=== PATIENT | female | born 1950 | race Caucasian/White ===

== ENCOUNTER 2017-08-19 14:40 | Emergency (ER) | payer MEDICARE ==
[~2017-08-19] VITALS: Ht 165.1 cm; Wt 66.0 kg
[2017-08-19 14:57] VITALS: BP 115/70; PULSE 110; RESP 16; TEMP 99.2
[2017-08-19] MEDS ORDERED: SODIUM CHLOR 0.9% 1000 ML INJ 1,000 ML IV ONE (15:01)
[2017-08-19] MEDS ORDERED: XANA1TAB2 PO (15:05)
[2017-08-19] MEDS ORDERED: DIPH25CA PO (15:06)
--- NOTE | 2017-08-19 15:07 | PD ---
HPI Chief Complaint: GI Complaint Time Seen by Provider: 14:47 Travel History International Travel<30 days: No Contact w/Intl Traveler<30days: No Traveled to known affect area: No History of Present Illness HPI The patient is a 67-year-old female who presents to the emergency department via EMS for diarrhea. The patient has a history of bad anxiety for which she takes Xanax. The patient was riding her stationary bike earlier today when she suddenly felt some abdominal "gurgling" and subsequently had diarrhea. The patient has 3 episodes of diarrhea which she describes as loose, watery, brown, without any visible blood. The patient thought possibly she had a "stomach flu". She denies any fever, does note some intermittent headaches. She denies any myalgias arthralgias, arthralgias, nausea, or vomiting. Symptoms are moderate. There are no current alleviating or exacerbating factors. She denies any other family members at home having similar symptoms. She did eat at a vegan restaurant yesterday. PFSH Past Medical History Narrative Medical Anxiety, estrogen replacement Past Surgical History Hysterectomy: Yes Social History Alcohol Use: No Tobacco Use: No Substance Use: No Allergies-Medications (Allergen,Severity, Reaction): Coded Allergies: buspirone (Verified Allergy, Severe, Numbness, 08/19/17) Reported Meds & Prescriptions Reported Meds & Active Scripts Active Reported Diphenhydramine (Diphenhydramine HCl) 25 Mg Cap 25 Mg PO HS PRN Xanax (Alprazolam) 1 Mg Tab 1 Mg PO Q8H PRN Review of Systems Except as stated in HPI: all other systems reviewed are Neg General / Constitutional: No: Fever, Chills HENT: Positive: Headaches, No: Lightheadedness Cardiovascular: No: Chest Pain or Discomfort Respiratory: No: Cough Gastrointestinal: Positive: Diarrhea, Abdominal Pain (Intermittent cramping), No: Nausea, Vomiting Genitourinary: No: Dysuria Musculoskeletal: No: Myalgias, Arthralgias Physical Exam Narrative GENERAL: Awake, alert, pleasant 67-year-old female who appears her stated age and is in no acute respiratory distress. SKIN: Focused skin assessment warm/dry. HEAD: Atraumatic. Normocephalic. EYES: No injection or drainage. ENT: No nasal bleeding or discharge. Slightly dry mucous membranes. NECK: Trachea midline. No JVD. CARDIOVASCULAR: R regular, tachycardic with a heart rate of 110. RESPIRATORY: No accessory muscle use. Clear to auscultation. Breath sounds equal bilaterally. GASTROINTESTINAL: Abdomen soft, non-tender, nondistended. No rebound tenderness , guarding, rigidity. Negative Billingsley's. Negative McBurney's. MUSCULOSKELETAL: No obvious deformities. No clubbing. No cyanosis. No edema. NEUROLOGICAL: Awake and alert. No obvious cranial nerve deficits. Motor grossly within normal limits. Normal speech. PSYCHIATRIC: Appropriate mood and affect; insight and judgment normal. Data Data Last Documented VS Vital Signs Date Time Temp Pulse Resp B/P (MAP) Pulse Ox O2 Delivery O2 Flow Rate FiO2 08/19/17 15:39 90 18 105/69 (81) 98 Room Air 08/19/17 14:57 99.2 Orders Orders Complete Blood Count With Diff (08/19/17 15:01) Comprehensive Metabolic Panel (08/19/17 15:01) Lipase (08/19/17 15:01) Iv Access Insert/Monitor (08/19/17 15:01) Ecg Monitoring (08/19/17 15:01) Oximetry (08/19/17 15:01) Sodium Chlor 0.9% 1000 Ml Inj (Ns 1000 M (08/19/17 15:01) Sodium Chloride 0.9% Flush (Ns Flush) (08/19/17 15:15) Alprazolam (Xanax) (08/19/17 15:45) Influenzae A/B Antigen (08/19/17 15:51) Labs Laboratory Tests Test 08/19/17 15:14 White Blood Count 11.2 TH/MM3 Red Blood Count 4.66 MIL/MM3 Hemoglobin 15.6 GM/DL Hematocrit 43.0 % Mean Corpuscular Volume 92.3 FL Mean Corpuscular Hemoglobin 33.4 PG Mean Corpuscular Hemoglobin Concent 36.0 % Red Cell Distribution Width 12.8 % Platelet Count 208 TH/MM3 Mean Platelet Volume 8.0 FL Neutrophils (%) (Auto) 87.2 % Lymphocytes (%) (Auto) 3.3 % Monocytes (%) (Auto) 5.5 % Eosinophils (%) (Auto) 0.2 % Basophils (%) (Auto) 3.8 % Neutrophils # (Auto) 9.8 TH/MM3 Lymphocytes # (Auto) 0.4 TH/MM3 Monocytes # (Auto) 0.6 TH/MM3 Eosinophils # (Auto) 0.0 TH/MM3 Basophils # (Auto) 0.4 TH/MM3 CBC Comment DIFF FINAL Differential Comment Blood Urea Nitrogen 10 MG/DL Creatinine 1.00 MG/DL Random Glucose 117 MG/DL Total Protein 7.6 GM/DL Albumin 3.5 GM/DL Calcium Level 8.6 MG/DL Alkaline Phosphatase 102 U/L Aspartate Amino Transf (AST/SGOT) 25 U/L Alanine Aminotransferase (ALT/SGPT) 34 U/L Total Bilirubin 0.4 MG/DL Sodium Level 138 MEQ/L Potassium Level 3.7 MEQ/L Chloride Level 104 MEQ/L Carbon Dioxide Level 26.9 MEQ/L Anion Gap 7 MEQ/L Estimat Glomerular Filtration Rate 56 ML/MIN Lipase 129 U/L MDM Medical Decision Making Medical Screen Exam Complete: Yes Emergency Medical Condition: Yes Medical Record Reviewed: Yes Interpretation(s) Laboratory Tests Test 08/19/17 15:14 White Blood Count 11.2 TH/MM3 Red Blood Count 4.66 MIL/MM3 Hemoglobin 15.6 GM/DL Hematocrit 43.0 % Mean Corpuscular Volume 92.3 FL Mean Corpuscular Hemoglobin 33.4 PG Mean Corpuscular Hemoglobin Concent 36.0 % Red Cell Distribution Width 12.8 % Platelet Count 208 TH/MM3 Mean Platelet Volume 8.0 FL Neutrophils (%) (Auto) 87.2 % Lymphocytes (%) (Auto) 3.3 % Monocytes (%) (Auto) 5.5 % Eosinophils (%) (Auto) 0.2 % Basophils (%) (Auto) 3.8 % Neutrophils # (Auto) 9.8 TH/MM3 Lymphocytes # (Auto) 0.4 TH/MM3 Monocytes # (Auto) 0.6 TH/MM3 Eosinophils # (Auto) 0.0 TH/MM3 Basophils # (Auto) 0.4 TH/MM3 CBC Comment DIFF FINAL Differential Comment Blood Urea Nitrogen 10 MG/DL Creatinine 1.00 MG/DL Random Glucose 117 MG/DL Total Protein 7.6 GM/DL Albumin 3.5 GM/DL Calcium Level 8.6 MG/DL Alkaline Phosphatase 102 U/L Aspartate Amino Transf (AST/SGOT) 25 U/L Alanine Aminotransferase (ALT/SGPT) 34 U/L Total Bilirubin 0.4 MG/DL Sodium Level 138 MEQ/L Potassium Level 3.7 MEQ/L Chloride Level 104 MEQ/L Carbon Dioxide Level 26.9 MEQ/L Anion Gap 7 MEQ/L Estimat Glomerular Filtration Rate 56 ML/MIN Lipase 129 U/L Date/Time Source Procedure Growth Status 08/19/17 15:50 Nasal Aspirate Influenza Types A,B Antigen ([facility]) - Final Positive For Flu A Antigen Complete Differential Diagnosis Differential diagnosis includes gastroenteritis, enteritis, colitis, viral syndrome, food poisoning, electrolyte abnormality, IBS, anxiety, somatization, influenza. Narrative Course IV was established, labs are drawn and sent, and the patient was placed on cardiac telemetry monitoring and continuous pulse oximetry monitoring. The patient was administered 1 L of IV fluids. Laboratory evaluation is unremarkable. Influenza screen is positive for influenza A. The patient had no further diarrhea. She will be prescribed Tamiflu. Is advised to drink plenty of fluids, [id number] medications as needed for diarrhea including Imodium. She is advised to follow-up with her primary physician. Return if symptoms worsen or progress. Diagnosis Primary Impression: Influenza A Patient Instructions: General Instructions Additional Instructions: Plenty of fluids to stay hydrated. Tamiflu as directed. [id number] medications for diarrhea including Imodium as needed. Follow-up with a primary physician. Return if symptoms worsen or progress. Med/Other Pt SpecificInfo: Prescription(s) given Scripts Oseltamivir (Tamiflu) 75 Mg Cap 75 MG PO BID for Mgmt Viral Infection for 5 Days, #10 CAP 0 Refills Prov: Carlito Murray MD 08/19/17 Disposition: 01 DISCHARGE HOME Condition: Stable Carlito Murray MD Aug 19, 2017 15:06
[2017-08-19 15:15] VITALS: O2SAT 98
[2017-08-19] MEDS ORDERED: SODIUM CHLORIDE 0.9% FLUSH 10 ML FLUSH IVF PRN (15:15)
[2017-08-19 15:18] LABS: AUTOMATED NEUTROPHIL # 9.8 TH/MM3 (1.8-7.7); BASOPHIL # 0.4 TH/MM3 (0-0.2); BASOPHIL % 3.8 % (0.0-2.0); EOSINOPHIL % 0.2 % (0.0-4.0); HEMOGLOBIN 15.6 GM/DL (11.6-15.3); LYMPH % 3.3 % (9.0-44.0); LYMPHOCYTE # 0.4 TH/MM3 (1.0-4.8); MEAN CELL VOLUME 92.3 FL (80.0-100.0); MEAN CORPUSCULAR HEMOGLOBIN 33.4 PG (27.0-34.0); MONO % 5.5 % (0.0-8.0); MONOCYTE # 0.6 TH/MM3 (0-0.9); NEUT % 87.2 % (16.0-70.0); PLATELET COUNT 208 TH/MM3 (150-450); RED BLOOD COUNT 4.66 MIL/MM3 (4.00-5.30); RED CELL DISTRIBUTION WIDTH 12.8 % (11.6-17.2); WHITE BLOOD COUNT 11.2 TH/MM3 (4.0-11.0)
[2017-08-19 15:30] LABS: CHLORIDE 104 MEQ/L (98-107); SODIUM (NA) 138 MEQ/L (136-145)
[2017-08-19 15:34] LABS: CALCIUM 8.6 MG/DL (8.5-10.1)
[2017-08-19 15:35] LABS: ALBUMIN 3.5 GM/DL (3.4-5.0); BICARBONATE 26.9 MEQ/L (21.0-32.0); BLOOD UREA NITROGEN 10 MG/DL (7-18); GLUCOSE,RANDOM 117 MG/DL (74-106)
[2017-08-19 15:37] LABS: ALT (GPT) 34 U/L (10-53); AST (GOT) 25 U/L (15-37)
[2017-08-19 15:38] LABS: GLOMERULAR FILTRATION RATE 56 ML/MIN (>89)
[2017-08-19 15:39] VITALS: BP 105/69; PULSE 90; RESP 18; O2SAT 98
[2017-08-19 15:39] LABS: TOTAL BILIRUBIN ADULT 0.4 MG/DL (0.2-1.0); TOTAL PROTEIN 7.6 GM/DL (6.4-8.2)
[2017-08-19 15:40] LABS: ALKALINE PHOSPHATASE 102 U/L (45-117)
[2017-08-19] MEDS ORDERED: ALPRAZolam 0.5 MG TAB PO ONE (15:45)
[2017-08-19] MEDS ORDERED: OSEL75 PO (17:06)
[2017-08-19 17:39] VITALS: BP 110/66
== END 2017-08-19 17:55 | disposition home or self-care (01) ==
LOC: PHED 14:40
DX: J10.2 Influenza due to other identified influenza virus with gastrointestinal manifestations (principal); F41.9 Anxiety disorder, unspecified
CPT/HCPCS: 80053; 83690; 85025; 87804; 96360; 99284; J7030